=== PATIENT | female | born 1950 | race Caucasian/White ===

== ENCOUNTER → 2016-11-04 | Outpatient (CLI) | payer OTHER ==
[~2016-11-04] MED LIST: AMBIEN PO; CARAFATE1 G PO; COMBIVENT INH14.7 GM INH; EFFEXOR XR150 MG PO; HCTZ PO; LISINOPRIL PO; PANTOPRAZOLE SO40 MG PO; VIT B12
--- NOTE | ~2016-11-04 | CT4 ---
[facility] A Service of [facility] [place] RADIOLOGY TEXT RESULTS PATIENT: MILAGROS HERNANDEZ LOCATION: [facility] : 52 UNIT #: [id number] AGE: [address]: Hans Wakefield MD SEX: F ORDER DR: [id number] [place] [id number] [facility]. [place], [place] [address] [id number] O MR#: [id number] Acc #: [id number] NAME: MILAGROS HERNANDEZ : 1950 SEX: F STUDY DATE/TIME: 11/04/2016 11:40 UNIT: CCAT ROOM: STUDY DESCRIPTION: CT Abd and Pelv Wo Cont Attending Physician: Hans Wakefield Jr., M.D. Referring Physician: Hans Wakefield Jr., M.D. Ordering Physician: Hans Wakefield Jr., M.D. Primary Care Physician: Harshad Alfred M.D. MEDICAL IMAGING REPORT This report is preliminary unless electronic signature is present EXAM CT abdomen and pelvis without contrast. INDICATIONS Nausea, right upper quadrant abdominal pain for the past [address] of the abdomen and pelvis. This CT exam was performed with one or more of the following radiation dose reduction techniques: automatic exposure control, adjustment of mA and/or kV according to patient size, and iterative reconstruction. COMPARISON 08/08/2011 FINDINGS ABDOMEN WITHOUT CONTRAST: The included lung bases are clear. Liver measures 18.5 cm. Liver, spleen, kidneys, adrenal glands, pancreas, gallbladder show no acute abnormality. The bowel loops are nondilated. Previous right hemicolectomy. Moderate colonic stool burden. PELVIS WITHOUT CONTRAST: No pelvic mass or fluid. No aggressive appearing bone lesion. IMPRESSION 1. No acute findings in the abdomen or pelvis. 2. Previous right hemicolectomy. 3. Findings were called to Dr. Wakefield's office at the time of this dictation per order request. [facility] A Service [facility] RADIOLOGY TEXT RESULTS PATIENT: MILAGROS HERNANDEZ LOCATION: [facility] : 52 UNIT #: [id number] AGE: [address]: Hans Wakefield MD SEX: F ORDER DR: Dictated by... Shawn Davis M.D. THIS IS AN ELECTRONICALLY VERIFIED REPORT Shawn Davis M.D. at 11/06/2016 2:28 PM EED/jose TD: 11/04/2016 13:38 JOB #: [id number] MEDICAL IMAGING REPORT Page 1 of 1 COPY
== END | disposition home or self-care (01) ==
LOC: CCAT 10:18
DX: R10.11 Right upper quadrant pain (principal); R11.2 Nausea with vomiting, unspecified; Z98.890 Other specified postprocedural states
CPT/HCPCS: 74176

== ENCOUNTER → 2016-11-21 | Outpatient (CLI) | payer OTHER ==
--- NOTE | ~2016-11-21 | US6 ---
[facility] A Service of [facility] RADIOLOGY TEXT RESULTS PATIENT: MILAGROS HERNANDEZ LOCATION: [facility] : 52 UNIT #: [id number] AGE: [address]: Hans Wakefield MD SEX: F ORDER DR: [id number] [facility] [address] [place], [place] [address] [id number] O MR#: [id number] Acc #: [id number] NAME: MILAGROS HERNANDEZ : 1950 SEX: F STUDY DATE/TIME: 11/21/2016 7:50 UNIT: US ROOM: STUDY DESCRIPTION: US Abdominal Limited Attending Physician: Hans Wakefield Jr., M.D. Referring Physician: Hans Wakefield Jr., M.D. Ordering Physician: Hans Wakefield Jr., M.D. Primary Care Physician: Harshad Alfred M.D. MEDICAL IMAGING REPORT This report is preliminary unless electronic signature is present EXAM Gallbladder ultrasound 11/21/2016 HISTORY Right upper quadrant abdominal pain with nausea and vomiting for 3 months, worsening over the past 2 weeks. FINDINGS Ultrasound examination of the gallbladder is negative. There is no cholelithiasis, gallbladder wall thickening, or bile duct dilatation. The visualized liver is negative. IMPRESSION Negative gallbladder ultrasound examination. Dictated by... Regis Mccoy M.D. THIS IS AN ELECTRONICALLY VERIFIED REPORT Regis Mccoy M.D. at 11/22/2016 8:27 AM KAYLA/desirae TD: 11/21/2016 12:07 JOB #: [id number] MEDICAL IMAGING REPORT Page 1 of 1 COPY
--- NOTE | ~2016-11-21 | NM22 ---
[facility] A Service of [facility] RADIOLOGY TEXT RESULTS PATIENT: MILAGROS HERNANDEZ LOCATION: [facility] : 52 UNIT #: [id number] AGE: [address]: Hans Wakefield MD SEX: F ORDER DR: [id number] [facility] [address] [place], [place] [address] [id number] O MR#: [id number] Acc #: [id number] NAME: MILAGROS HERNANDEZ : 1950 SEX: F STUDY DATE/TIME: 11/21/2016 8:26 UNIT: US ROOM: STUDY DESCRIPTION: NM Hepatobiliary W GB Pharm Attending Physician: Hans Wakefield Jr., M.D. Referring Physician: Hans Wakefield Jr., M.D. Ordering Physician: Hans Wakefield Jr., M.D. Primary Care Physician: Harshad Alfred M.D. MEDICAL IMAGING REPORT This report is preliminary unless electronic signature is present EXAM HIDA scan with Kinevac CCK 11/21/2016 HISTORY Right upper quadrant abdominal pain with nausea and vomiting, gastroesophageal reflux disease, gastroenteritis. Symptoms began 2 months ago. FINDINGS The patient received intravenous injection of 5.72 mCi of technetium 99m tagged Choletec for hepatobiliary imaging. 1 hour following the injection of the radiopharmaceutical the patient received an intravenous injection of 1.8 mcg of Kinevac. There is homogeneous distribution of the radiotracer throughout the liver. Gallbladder activity was seen by 15 minutes post injection of the radiopharmaceutical. Following Kinevac injection the gallbladder ejection fraction was 88.7% (normal is greater than 30%). IMPRESSION Normal HIDA scan with gallbladder ejection fraction of 88.7%. Dictated by... Regis Mccoy M.D. THIS IS AN ELECTRONICALLY VERIFIED REPORT Regis Mccoy M.D. at 11/22/2016 8:27 AM KRT/to TD: 11/21/2016 13:10 JOB #: [id number] MEDICAL IMAGING REPORT Page 1 of 1 COPY
== END | disposition home or self-care (01) ==
LOC: CGUS 07:26
DX: R10.11 Right upper quadrant pain (principal); K21.9 Gastro-esophageal reflux disease without esophagitis
CPT/HCPCS: 76705; 78227; A9537; J2805